=== PATIENT | male | born 1970 | race American Indian/Alaskan Native ===

== ENCOUNTER 2023-11-27 21:30 | Inpatient (IN) | payer MEDICAID, OTHER ==
[~2023-11-27] VITALS: Ht 177.8 cm; Wt 86.0 kg
[2023-11-27] MEDS: SODIUM CHLORIDE 0.9% 1,000 ML IV ONE (21:45)
[2023-11-27 23:02] LABS: Basophils # (auto) 0 10 ^3/uL (0-0.2); Basophils % (auto) 0.4 % (0.0-2.0); Eosinophils # (auto) 0.1 10 ^3/uL (0-0.8); Eosinophils % (auto) 1.3 % (0.0-7.0); Hematocrit 41.9 % (41.0-53.0); Hemoglobin 14.9 g/dL (13.5-17.5); Lymphocytes # (auto) 2.1 10 ^3/uL (0.4-5.4); Lymphocytes % (auto) 20.7 % (10.0-50.0); Mean Corpuscular Hemoglobin 30.4 pg (28.0-32.0); Mean Corpuscular Hgb Conc. 35.4 g/dL (32.0-36.0); Mean Corpuscular Volume 85.8 fL (80.0-100.0); Monocytes # (auto) 0.7 10 ^3/uL (0-1.3); Monocytes % (auto) 6.5 % (0.0-12.0); Neutrophils # (auto) 7.3 10 ^3/uL (1.6-8.6); Neutrophils % (auto) 71.1 % (37.0-80.0); Platelet Count (auto) 249 10^3/uL (140-450); Red Blood Cells 4.89 10^6/uL (4.5-5.90); Red Cell Distribution Width 14.2 % (11.8-14.3); White Blood Cell 10.3 10^3/uL (4.4-10.8)
[2023-11-27 23:09] LABS: Alanine Aminotransferase 83 U/L (7-40); Albumin 4.5 g/dL (3.2-4.8); Alkaline Phosphatase 100 U/L (46-116); Anion Gap 11 (5-15); Aspartate Aminotransferase 60 U/L (13-40); BUN/Creatinine Ratio 6.4 (10.0-20.0); Blood Urea Nitrogen 8 mg/dL (9-23); Calcium 9.4 mg/dL (8.7-10.4); Carbon Dioxide 21 mmol/L (20-31); Chloride 97 mmol/L (98-107); Glucose 106 mg/dL (74-106); Lipase 49 U/L (12-53); Potassium 2.7 mmol/L (3.5-5.1); Sodium 129 mmol/L (136-145); Total Protein 7.8 g/dL (5.7-8.2)
[2023-11-27 23:10] LABS: Bilirubin, Total 0.6 mg/dL (0.2-1.0)
[2023-11-27 23:26] LABS: Blood Alcohol 223.8 mg/dL (<10)
[2023-11-28] MEDS: SUCRALFATE 1 GM TAB PO ONE (03:15)
[2023-11-28] MEDS: POTASSIUM CHL 20 Meq TABLET PO ONE (03:16)
[2023-11-28] MEDS: LIDOCAINE VISCOUS 2% 15ML UD PO ONE (03:17)
[2023-11-28] MEDS: NITROGLYCERIN 0.4 MG SL TAB SL ONE (03:17)
[2023-11-28] MEDS ORDERED: MORPHINE SULFATE INJ 2 MG/ml SYRG IV PRN (03:30)
[2023-11-28] MEDS ORDERED: hydrALAZINE HCL 20 MG/ML VL IV PRN (03:30)
[2023-11-28] MEDS ORDERED: NITROGLYCERIN 0.4 MG SL TAB SL PRN (03:30)
[2023-11-28] MEDS ORDERED: ONDANSETRON HCL 4 MG/2 ML VIAL IV PRN (03:30)
[2023-11-28] MEDS: ONDANSETRON HCL 4 MG/2 ML VIAL IV ONE (05:35)
[2023-11-28] MEDS: PANTOPRAZOLE 40 MG/10 ML VIAL INJ IV ONE (05:35)
[2023-11-28] MEDS: TEMAZEPAM 15 MG CAP PO PRN (05:36)
[2023-11-28] MEDS: chlordiazePOXIDE HCL 25 MG CAP PO SCH (05:36)
[2023-11-28] MEDS: LABETALOL HCL 20 MG/4 ML VL IV ONE (05:36)
[2023-11-28 06:14] VITALS: PULSE 105; RESP 19; O2SAT 100
[2023-11-28 07:55] VITALS: PULSE 72; RESP 18; O2SAT 100
[2023-11-28] MEDS: LISINOPRIL 5 MG TAB PO SCH (09:59)
[2023-11-28 10:34] LABS: Chloride 104 mmol/L (98-107); Potassium 3.9 mmol/L (3.5-5.1)
[2023-11-28 10:35] LABS: Anion Gap 7 (5-15); Calcium 9.1 mg/dL (8.7-10.4); Carbon Dioxide 24 mmol/L (20-31)
[2023-11-28 10:40] LABS: BUN/Creatinine Ratio 7.8 (10.0-20.0); Blood Urea Nitrogen 9 mg/dL (9-23); Glucose 85 mg/dL (74-106)
[2023-11-28 10:42] LABS: Sodium 135 mmol/L (136-145)
[2023-11-28 11:28] LABS: Urine Bacteria None Seen /hpf (None Seen)
[2023-11-28] MEDS ORDERED: FOLIC ACID 1 MG in D5W 5% 50 ML INJ SCH (11:30)
[2023-11-28 11:56] LABS: Urine Blood Negative /uL (Negative); Urine Clarity Clear (Clear); Urine Color Colorless (Yellow); Urine Protein, UAD Negative (Negative); Urine Specific Gravity 1.003 (1.001-1.035); Urine Urobilinogen Normal (Negative); Urine WBC <1 /hpf (0 - 3)
[2023-11-28] MEDS: FOLIC ACID 1 MG in D5W 5% 50 ML INJ ONE (12:15)
[2023-11-28 12:20] LABS: Amphetamine Screen, Urine Neg (NEGATIVE); Barbiturate Scree,Urine Neg (NEGATIVE); Benzodiazephine Screen, Urine Neg (NEGATIVE); Cocaine Screen, Urine Pos (NEGATIVE); Opiate Scree,Urine Neg (NEGATIVE)
[2023-11-28 12:21] LABS: Cannabinoid Screen, Urine Neg (NEGATIVE); Phencyclidine Screen, Urine Neg (NEGATIVE)
[2023-11-28] MEDS: FOLIC ACID 1 MG, MAGNESIUM SULF SDV 50% 8 MEQ, MULTIPLE VITAMIN 10 ML, THIAMINE INJ 100... INJ ONE (14:59)
[2023-11-28 23:37] VITALS: PULSE 63; RESP 20; O2SAT 100
[2023-11-28 23:50] VITALS: BP 126/70; PULSE 63; RESP 20; TEMP 97.7; O2SAT 100
[2023-11-29] VITALS (7 sets, daily range): BP systolic 118–174; BP diastolic 75–99; PULSE 61–76; RESP 18–20; TEMP 97.2–97.9; O2SAT 97–100
[2023-11-29 05:37] LABS: COVID19 ANTIGEN SOFIA FIA NEGATIVE (NEGATIVE)
[2023-11-29] MEDS ORDERED: AMLO1TAB22 PO (06:27)
[2023-11-29] MEDS ORDERED: PNEUMOCOCCAL VACC POLYS 25 MCG/0.5 ML VIAL IM ONE (06:45)
[2023-11-29 07:36] LABS: Chloride 108 mmol/L (98-107); Potassium 3.7 mmol/L (3.5-5.1); Sodium 138 mmol/L (136-145)
[2023-11-29 07:37] LABS: Anion Gap 6 (5-15); Carbon Dioxide 24 mmol/L (20-31)
[2023-11-29 07:38] LABS: Calcium 8.8 mg/dL (8.7-10.4)
[2023-11-29 07:42] LABS: Glucose 132 mg/dL (74-106)
[2023-11-29 07:43] LABS: BUN/Creatinine Ratio 11.2 (10.0-20.0); Blood Urea Nitrogen 15 mg/dL (9-23); Magnesium 2.2 mg/dL (1.6-2.6)
[2023-11-29 07:45] LABS: Basophils # (auto) 0 10 ^3/uL (0-0.2); Basophils % (auto) 0.6 % (0.0-2.0); Eosinophils # (auto) 0.3 10 ^3/uL (0-0.8); Eosinophils % (auto) 3.7 % (0.0-7.0); Hematocrit 37.5 % (41.0-53.0); Hemoglobin 13.3 g/dL (13.5-17.5); Lymphocytes # (auto) 1.5 10 ^3/uL (0.4-5.4); Lymphocytes % (auto) 21.4 % (10.0-50.0); Mean Corpuscular Hgb Conc. 35.4 g/dL (32.0-36.0); Mean Corpuscular Volume 87.4 fL (80.0-100.0); Monocytes # (auto) 0.4 10 ^3/uL (0-1.3); Monocytes % (auto) 6.3 % (0.0-12.0); Neutrophils # (auto) 4.9 10 ^3/uL (1.6-8.6); Phosphorus 2.7 mg/dL (2.4-5.1); Platelet Count (auto) 190 10^3/uL (140-450); Red Cell Distribution Width 14.4 % (11.8-14.3); White Blood Cell 7.2 10^3/uL (4.4-10.8)
[2023-11-29] MEDS: chlordiazePOXIDE HCL 25 MG CAP PO SCH (09:18)
[2023-11-29] MEDS: THIAMINE 100mg/ml INJ (200mg/2ml VIAL) IV SCH (09:29)
[2023-11-29] MEDS: ACETAMINOPHEN 325 MG TAB PO ONE (13:20)
[2023-11-29] MEDS: LISINOPRIL 5 MG TAB PO ONE (13:21)
[2023-11-29] MEDS: FOLIC ACID 1 MG, MAGNESIUM SULF SDV 50% 8 MEQ, MULTIPLE VITAMIN 10 ML, THIAMINE INJ 100... INJ SCH (18:04)
[2023-11-30 01:00] VITALS: BP 118/76; PULSE 61; RESP 19; TEMP 97.1; O2SAT 97
[2023-11-30 05:00] VITALS: BP 130/82; PULSE 74; RESP 18; TEMP 98; O2SAT 94
[2023-11-30 08:00] VITALS: PULSE 66
[2023-11-30] MEDS: hydrALAZINE HCL 20 MG/ML VL IV PRN (08:08)
[2023-11-30] MEDS: LORazepam 0.5 MG TAB PO PRN (08:10)
[2023-11-30 08:38] VITALS: BP 161/101; PULSE 79; RESP 19; TEMP 98.1; O2SAT 98
[2023-11-30] MEDS: LISINOPRIL 20 MG TAB PO SCH (09:40)
[2023-11-30] MEDS: chlordiazePOXIDE HCL 25 MG CAP PO SCH (09:40)
[2023-11-30] MEDS: MAGNESIUM OXIDE 400 MG TAB PO ONE (11:38)
[2023-11-30] MEDS: MULTIPLE VITAMIN TAB PO ONE (11:38)
[2023-11-30] MEDS: THIAMINE HCL 100 MG TAB PO ONE (11:38)
[2023-11-30] MEDS: FOLIC ACID 1 MG TAB PO ONE (11:38)
[2023-11-30] MEDS ORDERED: LISI20TA56 PO (12:05)
[2023-11-30] MEDS: KETOROLAC TROMETH 30 MG/ML 1ML VIAL IV ONE (12:49)
[2023-11-30] MEDS: ACETAMINOPHEN 325 MG TAB PO ONE (12:50)
[2023-11-30 13:00] VITALS: BP 159/106; PULSE 74; RESP 21; TEMP 97.4; O2SAT 99
[2023-11-30] MEDS: INFLUENZA TRIVALENT 2024-2025 0.5 ML INJ IM ONE (14:42)
[2023-12-01] MEDS ORDERED: chlordiazePOXIDE HCL 25 MG CAP PO SCH (07:00)
[2023-12-01] MEDS ORDERED: MAGNESIUM OXIDE 400 MG TAB PO SCH (10:00)
[2023-12-01] MEDS ORDERED: FOLIC ACID 1 MG TAB PO SCH (10:00)
[2023-12-01] MEDS ORDERED: MULTIPLE VITAMIN TAB PO SCH (10:00)
[2023-12-01] MEDS ORDERED: THIAMINE HCL 100 MG TAB PO SCH (10:00)
== END 2023-11-30 16:59 | disposition home or self-care (01) | DRG 816 ==
LOC: ER 21:30 → TELE-WESTW 11-28 03:46 → TELE 11-28 03:46 → UNDODEPER 11-28 05:45 → TELE-WESTW 11-28 23:35
PROVIDERS: ADMIT Nurse Practitioner; ATTEND Student in an Organized Health Care Education/Training Program
DX: T51.91XA Toxic effect of unspecified alcohol, accidental (unintentional), initial encounter (principal); E87.6 Hypokalemia; R07.9 Chest pain, unspecified; F10.90 Alcohol use, unspecified, uncomplicated; I10 Essential (primary) hypertension; Z20.822 Contact with and (suspected) exposure to COVID-19; Z59.00 Homelessness unspecified; Y90.7 Blood alcohol level of 200-239 mg/100 ml
CPT/HCPCS: 36415; 71045; 80048; 80053; 80307; 80320; 81001; 82962; 83605; 83690; 83735; 83880; 84100; 84484; 85025; 87081; 87426; 93005; 93306; G0378; J1885; J2405; J2470; J7060